=== PATIENT | female | born 1960 | race Caucasian/White ===

== ENCOUNTER → 2020-06-25 06:57 | Outpatient (CLI) | payer OTHER, SELFPAY ==
--- NOTE | 2020-06-25 | DI.MRI.S_ITS ---
PROCEDURE: MR SHOULDER RT WO CON INDICATIONS: Impingement syndrome of right shoulder TECHNIQUE: Noncontrast oblique coronal T2 fast spin echo with fat saturation, oblique sagittal T1 spin echo and T2 fast spin echo with fat saturation, axial T1 spin echo and T2 fast spin echo with fat saturation through the shoulder. COMPARISON: [facility] [place], CR, XR SHOULDER 2+ VIEWS RIGHT, 06/18/2020, 14:06. FINDINGS: Image quality: Excellent. Rotator cuff: There is high-grade partial-thickness tear of the distal supraspinatus and infraspinatus tendons involving both articular and bursal surface. There is moderate tendinosis of the subscapularis tendon. Sagittal images demonstrate no muscle atrophy. Bones and bursae: No bone marrow contusions or fractures. Moderate acromioclavicular and glenohumeral joint degeneration. Cystic changes are noted in the posterior aspect of the humeral head at the infraspinatus tendon insertion. The acromion demonstrates conventional anatomy, without an os acromiale. No pathologic subacromial-subdeltoid or subcoracoid bursal fluid is present. Capsule and soft tissues: There is mild degenerative fraying of the superior labrum. The long head of the biceps tendon demonstrates normal location and morphology. The rotator interval appears normal, without fibrosis. The coracohumeral ligament is normal in thickness. IMPRESSION: 1. High-grade partial-thickness tear of the supraspinatus and infraspinatus tendons. 2. Moderate subscapularis tendinitis. 3. Cystic changes in the posterior aspect of the humeral head at the infraspinatus tendon insertion. The finding is associated with posterior impingement. 4. Moderate acromioclavicular and glenohumeral joint degeneration. 5. Mild degenerative fraying of the superior labrum. Dictated by: Maggi Callahan M.D. on 06/25/2020 at 9:39 Approved by: Maggi Callahan M.D. on 06/25/2020 at 9:50
== END ==
PROVIDERS: PCP Specialist; Referring Provider Orthopaedic Surgery; Visit Provider Orthopaedic Surgery
DX: M75.41 Impingement syndrome of right shoulder (principal); M75.111 Incomplete rotator cuff tear or rupture of right shoulder, not specified as traumatic; M77.8 Other enthesopathies, not elsewhere classified
CPT/HCPCS: 73221